=== PATIENT | female | born 1970 | race Asian ===

== ENCOUNTER 2019-02-16 21:50 | Emergency (ER) | payer SELFPAY ==
[~2019-02-16] VITALS: Ht 162.6 cm; Wt 54.4 kg
--- NOTE | 2019-02-16 22:30 | NUR ---
ED Nurse Note: Recieved pt from home, awake, alert and oriented x 4, here with c/o lacertion to thumb on left hand, cut while washing dishes, mild bleding with pressure dressing on, pain at 6/10, all pulss present in hand, less mobility due to pain, pt denies any other complaints or discomforts.
[2019-02-16] MEDS ORDERED: Lidocaine 1% Plain 30 ml INJ ONE (23:30)
[2019-02-17] MEDS ORDERED: ACETAMINOPHEN500 M5 ORAL (00:20)
[2019-02-17] MEDS ORDERED: CEPHALEXIN500 M1 ORAL (00:20)
--- NOTE | 2019-02-17 00:21 | Emergency Room Report ---
History of Present Illness General Chief Complaint: Laceration Source: Patient Present Illness HPI 48-year-old female, presents with left thumb pain after lacerating it against a knife, she endorses some sharp pain aggravated with movement alleviated with rest severity is mild, intermittent, patient presents for laceration repair. Knife was clean she was picking it up from the correspondence specialist Allergies: Coded Allergies: No Known Allergies (Unverified , 02/16/19) Patient History Past Medical History: see triage record Last Menstrual Period: 02/06/19 Now: No Reviewed Nursing Documentation: PMH: Agreed; PSxH: Agreed Nursing Documentation-PMH Past Medical History: No Stated History Review of Systems All Other Systems: negative except mentioned in HPI Physical Exam Vital Signs Date Time Temp Pulse Resp B/P (MAP) Pulse Ox O2 Delivery O2 Flow Rate FiO2 02/16/19 22:15 98.4 68 16 113/77 (89) 97 Room Air General Appearance: well appearing, no apparent distress Head: normocephalic, atraumatic ENT: hearing grossly normal, normal voice Neck: full range of motion, supple Respiratory: no respiratory distress, speaking full sentences Musculoskeletal: other - Left upper extremity: 2+ radial pulse, cap refill less than 3 seconds, laceration over radial aspect of thumb to the midline dorsal aspect, measuring 1.5 cm flexion extension intact Neurologic: alert, normal gait Psychiatric: mood/affect normal Skin: no rash Procedures Laceration/Wound Repair Laceration/Wound Repair : Consent: Verbal Wound Location: upper extremity Wound's Depth, Shape: superficial Wound Length (cm): 1 Wound Explored: no foreign body removed Irrigated w/ Saline (ccs): 20 Betadine Prep?: Yes Anesthesia: 1% Lidocaine Volume Anesthetic (ccs): 10 Wound Repaired With: sutures Suture Size/Type: 5:0 Number of Sutures: 4 Sterile Dressing Applied?: Yes Splint Applied?: No Patient Tolerated: Well Complications: None Medical Decision Making Diagnostic Impression: Primary Impression: Finger laceration Qualified Codes: S61.012A - Laceration without foreign body of left thumb without damage to nail, initial encounter ER Course 48-year-old female presents with left thumb laceration, wound clean dry intact, neurovascular exam unremarkable, 4 sutures placed, patient tolerated without any issues, neurovascular exam still intact, finger block used Disposition home with return precautions, counseled patient to follow-up with orthopedics Last Vital Signs Date Time Temp Pulse Resp B/P (MAP) Pulse Ox O2 Delivery O2 Flow Rate FiO2 02/16/19 22:15 98.4 68 16 113/77 (89) 97 Room Air Disposition: HOME, SELF-CARE Condition: Stable Scripts Acetaminophen (Acetaminophen) 500 Mg Tablet 1000 MG ORAL Q8H for PAIN, #60 TAB Prov: Aston Perrin MD 02/17/19 Cephalexin* (KEFLEX*) 500 Mg Tablet 500 MG ORAL EVERY 6 HOURS, #28 CAP Prov: Aston Perrin MD 02/17/19 Referrals: NON PHYSICIAN (PCP) [facility] Patient Instructions: Laceration Care, Adult Additional Instructions: The patient was provided with discharge instructions, notified to follow-up with a primary care doctor and or specialist in the next 24-48 hours, and to return to the ED if they have worsening of their symptoms. Please note that this report is being documented using DRAGON technology. This can lead to erroneous entry secondary to incorrect interpretation by the dictating instrument. Sutures to be removed 02/25/2019 Follow-up with Ortho 24-48 hours Aston Perrin MD Feb 17, 2019 00:20
[2019-02-17] MEDS ORDERED: Tetanus/Diptheria/Pertussis IM ONE (00:30)
[2019-02-17 00:45] VITALS: BP 113/77
--- NOTE | 2019-02-17 00:45 | NUR ---
ER DISCHARGE NOTE: Patient is cleared to be discharged per ERMD, pt is aox4, on room air, with stable vital signs. pt was given dc and prescription instructions, pt was able to verbalize understanding, pt id band removed without complications. pt is able to ambulate with steady gait. pt took all belongings.
== END 2019-02-17 00:45 | disposition home or self-care (01) ==
LOC: EMR 22:30
DX: S61.012A Laceration without foreign body of left thumb without damage to nail, initial encounter (principal); Z23 Encounter for immunization; W26.0XXA Contact with knife, initial encounter; Y92.9 Unspecified place or not applicable
CPT/HCPCS: 12001; 90471; 90715; 99283; J2001